=== PATIENT | male | born 1975 | race Caucasian/White ===

== ENCOUNTER 2023-05-19 09:22 | Day surgery (SDC) | payer BC, OTHER ==
[~2023-05-19 09:22] MED LIST: Lactated Ringers 1,000 ML IV SCH; Propofol 200 MG/20 ML SDV ONE; Sodium Chloride 0.9% 10 ML Syringe FLUSH PRN; Sodium Chloride 0.9% 10 ML Syringe FLUSH SCH
[2023-05-19] MEDS ORDERED: Lidocaine 2% 20 ML MDV ONE (10:42)
[2023-05-19] MEDS ORDERED: Propofol 200 MG/20 ML SDV ONE ×2 (10:58→11:19)
[2023-05-19] MEDS ORDERED: Ketorolac 15 MG/ML SDV ONE (11:29)
[2023-05-19] MEDS ORDERED: Bupivacaine 0.5% 30 ML SDV ONE (11:29)
== END 2023-05-19 12:37 | disposition home or self-care (01) ==
LOC: JD.SDS 09:22
PROVIDERS: ATTEND Surgery
DX: D12.0 Benign neoplasm of cecum (principal); D12.3 Benign neoplasm of transverse colon; K63.5 Polyp of colon; K63.89 Other specified diseases of intestine; K64.8 Other hemorrhoids; Z80.0 Family history of malignant neoplasm of digestive organs; Z79.899 Other long term (current) drug therapy; Z87.891 Personal history of nicotine dependence
CPT/HCPCS: 45380; 46221; J1885; J2001; J2704; J3490; J7120; 00811

== ENCOUNTER 2024-02-24 11:42 | Emergency (ER) | payer OTHER ==
[2024-02-24] MEDS: Acetaminophen 325 MG Tab PO ONE (13:54)
== END 2024-02-24 14:11 | disposition home or self-care (01) ==
LOC: JD.ED 11:42
DX: S06.0X0A Concussion without loss of consciousness, initial encounter (principal); W22.8XXA Striking against or struck by other objects, initial encounter
CPT/HCPCS: 70450; 99283; A9270

== ENCOUNTER 2025-06-25 20:03 | Emergency (ER) | payer MEDICAID | END 2025-06-25 22:58 | disposition home or self-care (01) | LOC: JD.ED 20:03 | DX: L03.115 Cellulitis of right lower limb (principal); I10 Essential (primary) hypertension; Z79.899 Other long term (current) drug therapy | CPT/HCPCS: 93971-26-RT; 93971-RT; 99283 ==